=== PATIENT | female | born 1945 | race Caucasian/White ===

== ENCOUNTER 2025-06-16 10:36 | Emergency (ER) | payer MEDICARE, SELFPAY ==
[2025-06-16 10:56] VITALS: BP 153/74; PULSE 77; RESP 16; TEMP 35.9; O2SAT 100
--- NOTE | 2025-06-16 11:19 | ED.SKABFB ---
HPI - Skin/Abscess/Foreign Bdy General Chief complaint: Skin/Abscess/Foreign Body Stated complaint: Rash Patient presents to [facility] complaints burning, rash redness, and drainage from under left breast that began about 3 weeks ago. Patient reports she has had this in the past and knows that this is fungal has been putting topical fungal medication on without relief of symptoms. Patient noted she just had a recent cancer removal surgery and was concerned for infection. Patient noted she has been keeping this is dry as possible but does have to go outside and does get sweaty trying to take care of her horses. Denies any colored drainage, fever, chills, body aches. Related Data Home Medications ?Medication ?Instructions ?Recorded ?Confirmed ?Last Taken ?Type ibuprofen 200 mg tablet (Advil) 400 mg PO Q12H 04/21/24 06/16/25 Unknown History Allergies Allergy/AdvReac Type Severity Reaction Status Date / Time morphine Allergy Unknown Hallucinati Verified 06/16/25 11:26 ng Review of Systems Constitutional: Constitutional: Reports as per HPI, Denies chills, Denies fatigue, Denies fever(s) and Denies weakness Cardiovascular: Cardiovascular: Reports no additional cardiovascular complaints Respiratory: Respiratory: Reports no additional respiratory complaints Gastrointestinal: Gastrointestinal: Reports no additional gastrointestinal complaints Genitourinary: Genitourinary: Reports no additional female genitourinary complaints Musculoskeletal: Musculoskeletal: Reports no additional musculoskeletal complaints Integumentary/Breasts: Skin/Breast: Reports as per HPI, Reports pruritus, Reports erythema, Reports rash and Denies skin ulcer Neurologic: Reports as per HPI Psychiatric: Psychiatric: Reports no additional psychiatric complaints Endocrine: Endocrine: Reports no additional endocrine complaints Hematologic/Lymphatic: Hematologic/Lymphatic: Reports no additional hematologic/lymphatic complaints Allergic/Immunologic: Allergic/Immunologic: Reports as per HPI, Denies lip swelling, Denies throat swelling and Denies tongue swelling PMF Past Medical History Medical History History of melanoma Surgical History Surgical History Status post Mohs surgery History of hysterectomy History of left knee replacement 2019 Family History Family History Mother Asthma COPD (chronic obstructive pulmonary disease) Father Cancer Social History Social History Smoking status: Never smoker Second hand tobacco smoke exposure: No Alcohol intake: never Substance use: never Substance use type: does not use Current Housing: Decline to Answer Concerned About Future Housing: Decline to Answer Difficulty Paying Gas/Electric Bills: Decline to Answer Difficulty Paying for Meds: Decline to Answer Currently Unemployed: Decline to Answer Education: Decline to Answer Difficulty w/ Childcare or Family Care: Decline to Answer Living arrangements: with family Occupation/Education: occupation Additional occupation/education comments: 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, 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 with 7 days a week Gender identity (if verbalized by the patient): Female Exam Const: General: healthy appearing and no acute distress Nutritional Appearance: well nourished Orientation/consciousness: patient oriented x3 Limitations: no limitations Resp: Effort & Inspection: normal respiratory effort Auscultation: clear to auscultation bilaterally Cardio: Rate: regular rate Rhythm: regular rhythm Skin: General skin exam: normal color Rashes: rash noted Wounds: wounds noted Other: Diffuse erythematous rash noted under left breast with clear weeping, obvious satellite lesions, minimal streaking away from rash . Neuro: General: patient oriented x3 Speech: normal speech Gait exam (Neuro): Normal gait present Psych: Mental Status: mental status grossly normal Affect: normal affect Attitude: cooperative Course Course Level of Care: Express Care Visit Vital Signs Vital signs: Vital Signs Temperature 96.7 F L 06/16/25 10:56 Pulse Rate 77 06/16/25 10:56 Respiratory Rate 16 06/16/25 10:56 Blood Pressure 153/74 H 06/16/25 10:56 Pulse Oximetry 100 06/16/25 10:56 Temperature 96.7 F L 06/16/25 10:56 Pulse Rate 77 06/16/25 10:56 Respiratory Rate 16 06/16/25 10:56 Blood Pressure 153/74 H 06/16/25 10:56 Pulse Oximetry 100 06/16/25 10:56 MDM - Skin/Abscess/Foreign Bdy MDM Narrative Medical decision making narrative: Discharge instructions reviewed with patient, as well as provided in writing per nursing staff. The instructions also include specific and strict return/GO TO THE ER as well as f/u information. All questions have been answered, and the patient deny any further questions with discharge and discharge plan. Differential Diagnosis Differential diagnosis: Likely viral exanthem, urticaria, cellulitis, eczema, insect bites, impetigo and contact dermatitis Medical Records Attestation: I reviewed the patient's medical records. Discharge Plan Discharge Clinical Impression: Cellulitis, Fungal infection of skin Patient Disposition: Home Condition: Stable Instructions: Antibiotic Form, Cellulitis (ED), Tinea Corporis (ED) Additional Instructions: Clean with soap and water only; Avoid using alcohol and peroxide. May use InterDry ( available on [employer]) fabric underneath her breast to wick away moisture. Elevate the affected area if possible Alternate Tylenol/ibuprofen for as needed for pain Acetaminophen(Tylenol) 650-1000mg every 4-6hours with max of 4000mg/day. Nonsteroidal anti-inflammatory agent (NSAIDs-ibuprofen): 400mg every 4-6hours with max 2400mg/day Take antibiotic until it's gone. Take the fluconazole tablets every 3 days x3 tablets as well as using the topical antifungal medication. Please schedule a follow up visit with your personal physician for further evaluation and treatment within 3-5days OR if your symptoms persist, change or worsen significantly before you can contact your personal physician then please, without delay, go to the emergency department for further evaluation. Patient Language: Thai Prescriptions: New fluconazole 150 mg tablet 150 mg PO Q3D Qty: 3 0RF nystatin 100,000 unit/gram cream 1 applic topical TID Qty: 30 1RF cephalexin 500 mg capsule 500 mg PO Q12H Qty: 14 0RF No Action ibuprofen [Advil] 200 mg tablet 400 mg PO Q12H Follow-up/Referrals: Julius,Eddie Wells MD [Primary Care Provider] - Time of Disposition: 11:28
== END 2025-06-16 11:30 | disposition home or self-care (01) ==
PROVIDERS: Emergency Provider Nurse Practitioner Family; PCP Internal Medicine
DX: N61.0 Mastitis without abscess (principal); B36.9 Superficial mycosis, unspecified; Z85.820 Personal history of malignant melanoma of skin; Z96.652 Presence of left artificial knee joint
CPT/HCPCS: 99213; G0463